=== PATIENT | male | born 1940 | race Native Hawaiian/Other Pacific Islander ===

== ENCOUNTER 2016-10-04 08:11 | Outpatient (CLI) | payer OTHER ==
[~2016-10-04 08:11] MED LIST: ASA LO-DOSE81 MG PO; CEPH500C20 PO; CIPRO500 MG PO; CLOP75TA2 PO; LOVASTATIN10 MG OR; METF500T PO; METO25TA4 OR; ONDA2INJ2 SL; ONDA4TAB3 PO; SM ASPIRIN325 M1 PO; TETA5INJ3 INJ; TRIAMCINOLON0.51 TOP
[2016-10-04 08:50] LABS: PLATELET COUNT 177 K/uL (142-355)
[2016-10-04 09:20] LABS: POTASSIUM 4.6 mmol/L (3.6-5.2); SODIUM 139 mmol/L (136-145)
== END 2016-10-04 09:15 | disposition home or self-care (01) ==
LOC: LABW 08:11
PROVIDERS: Internal Medicine
DX: E11.9 Type 2 diabetes mellitus without complications (principal)
CPT/HCPCS: 36415; 80053; 80061; 81000; 82043; 82570; 83036; 84439; 84443; 85027

== ENCOUNTER 2016-10-06 19:06 | Emergency (ER) | payer OTHER ==
[~2016-10-06] VITALS: Ht 180.3 cm; Wt 105.2 kg
[2016-10-06] MEDS ORDERED: METOPROLOL25 M1 OR (19:37)
[2016-10-06 20:05] LABS: PLATELET COUNT 181 K/uL (142-355)
[2016-10-06 20:12] LABS: POTASSIUM 4.4 mmol/L (3.6-5.2); SODIUM 137 mmol/L (136-145)
[2016-10-06 20:28] LABS: PARTIAL THROMBOPLASTIN TIME 25.1 SECONDS (24.5-33.6)
[2016-10-07 00:28] VITALS: BP 186/78; TEMP 98.1
== END 2016-10-07 00:29 | disposition home or self-care (01) ==
LOC: ED 19:06
DX: K29.60 Other gastritis without bleeding (principal); B96.81 Helicobacter pylori [H. pylori] as the cause of diseases classified elsewhere; K57.30 Diverticulosis of large intestine without perforation or abscess without bleeding
CPT/HCPCS: 36415; 80053; 82550; 84484; 85027; 85610; 85730; 86318; 93005; 99283; Q9963

== ENCOUNTER 2017-09-19 09:29 | Outpatient (CLI) | payer OTHER ==
[~2017-09-19 09:29] MED LIST changes: +METOPROLOL25 M1 OR
== END 2017-09-19 22:31 | disposition home or self-care (01) ==
LOC: RAD 09:29
DX: J40 Bronchitis, not specified as acute or chronic (principal)

== ENCOUNTER 2017-12-18 10:29 | Outpatient (CLI) | payer OTHER | END 2017-12-18 20:09 | disposition home or self-care (01) | LOC: RESP 10:29 | DX: R00.2 Palpitations (principal) | CPT/HCPCS: 93225 ==

== ENCOUNTER 2017-12-19 08:23 | Outpatient (CLI) | payer OTHER ==
[2017-12-19 09:41] LABS: PLATELET COUNT 194 K/uL (142-355)
[2017-12-19 10:00] LABS: POTASSIUM 4.2 mmol/L (3.6-5.2)
== END 2017-12-19 20:14 | disposition home or self-care (01) ==
LOC: LABW 08:23
PROVIDERS: Internal Medicine
DX: R00.2 Palpitations (principal); E11.9 Type 2 diabetes mellitus without complications; I25.10 Atherosclerotic heart disease of native coronary artery without angina pectoris; J42 Unspecified chronic bronchitis; R06.02 Shortness of breath
CPT/HCPCS: 36415; 80053; 80061; 81000; 82043; 82570; 83036; 83735; 83880; 84439; 84443; 85027; 85379

== ENCOUNTER 2018-05-07 01:20 | Emergency (ER) | payer OTHER ==
[~2018-05-07] VITALS: Ht 180.3 cm; Wt 106.1 kg
[2018-05-07 01:42] VITALS: TEMP 97.5
[2018-05-07 01:50] LABS: PLATELET COUNT 153 K/uL (142-355)
[2018-05-07 03:15] LABS: PARTIAL THROMBOPLASTIN TIME 25.4 SECONDS (24.5-33.6)
[2018-05-07 04:19] VITALS: BP 160/61
== END 2018-05-07 04:45 | disposition short-term general hospital (02) ==
LOC: ED 01:21
PROVIDERS: Emergency Medicine
DX: I21.4 Non-ST elevation (NSTEMI) myocardial infarction (principal)
CPT/HCPCS: 36415; 80053; 82550; 82553; 84484; 85027; 85610; 85730; 93005; 96365; 96375; 99285; J1644; J2270; J3490

== ENCOUNTER 2018-06-23 14:25 | Outpatient (CLI) | payer OTHER | END 2018-06-23 20:29 | disposition home or self-care (01) | LOC: RAD 14:25 | DX: K59.09 Other constipation (principal) ==

== ENCOUNTER 2018-06-24 07:32 | Outpatient (CLI) | payer OTHER ==
[2018-06-24 07:49] LABS: PLATELET COUNT 175 K/uL (142-355)
[2018-06-24 08:30] LABS: POTASSIUM 4.5 mmol/L (3.6-5.2)
== END 2018-06-24 20:08 | disposition home or self-care (01) ==
LOC: LABW 07:32
PROVIDERS: Internal Medicine
DX: K59.09 Other constipation (principal); I25.10 Atherosclerotic heart disease of native coronary artery without angina pectoris; E11.9 Type 2 diabetes mellitus without complications
CPT/HCPCS: 36415; 80053; 81000; 84439; 84443; 85027

== ENCOUNTER 2019-04-16 07:18 | Outpatient (CLI) | payer OTHER ==
[2019-04-16 07:59] LABS: PLATELET COUNT 184 K/uL (142-355)
[2019-04-16 08:20] LABS: POTASSIUM 4.4 mmol/L (3.6-5.2)
== END 2019-04-16 19:34 | disposition home or self-care (01) ==
LOC: LABW 07:18
PROVIDERS: Internal Medicine
DX: E11.9 Type 2 diabetes mellitus without complications (principal)
CPT/HCPCS: 36415; 80053; 80061; 81000; 82043; 82570; 83036; 84439; 84443; 85027

== ENCOUNTER 2019-12-14 07:35 | Outpatient (CLI) | payer OTHER ==
[2019-12-14 08:07] LABS: PLATELET COUNT 163 K/uL (142-355)
[2019-12-14 08:31] LABS: POTASSIUM 3.9 mmol/L (3.6-5.2)
== END 2019-12-14 19:07 | disposition home or self-care (01) ==
LOC: LABW 07:35
PROVIDERS: Internal Medicine
DX: N40.1 Benign prostatic hyperplasia with lower urinary tract symptoms (principal); E11.9 Type 2 diabetes mellitus without complications
CPT/HCPCS: 36415; 80053; 80061; 81000; 82043; 82570; 83036; 84153; 84439; 84443; 85027

== ENCOUNTER 2020-05-10 08:05 | Outpatient (CLI) | payer OTHER | END 2020-05-10 19:30 | disposition home or self-care (01) | LOC: INF 08:05 | PROVIDERS: ATTEND Internal Medicine | DX: Z23 Encounter for immunization (principal) | CPT/HCPCS: 96372 ==

== ENCOUNTER 2020-05-30 07:57 | Outpatient (CLI) | payer OTHER | END 2020-05-30 19:48 | disposition home or self-care (01) | LOC: INF 07:57 | PROVIDERS: ATTEND Internal Medicine | DX: Z23 Encounter for immunization (principal) | CPT/HCPCS: 96372 ==

== ENCOUNTER 2020-06-30 09:03 | Outpatient (CLI) | payer OTHER | END 2020-06-30 21:46 | disposition home or self-care (01) | LOC: LABW 09:03 | PROVIDERS: ATTEND Internal Medicine Gastroenterology | DX: K64.0 First degree hemorrhoids (principal) | CPT/HCPCS: 82272 ==

== ENCOUNTER 2020-07-04 08:04 | Outpatient (CLI) | payer OTHER ==
[~2020-07-04] VITALS: Ht 30.5 cm; Wt 0.5 kg
== END 2020-07-04 19:40 | disposition home or self-care (01) ==
LOC: NM 08:04
PROVIDERS: ATTEND Specialist
DX: I42.8 Other cardiomyopathies (principal)
CPT/HCPCS: A9500; J2785

== ENCOUNTER 2020-09-01 07:22 | Outpatient (CLI) | payer OTHER ==
[2020-09-01 08:11] LABS: PLATELET COUNT 190 K/uL (142-355)
[2020-09-01 08:55] LABS: POTASSIUM 4.5 mmol/L (3.6-5.2)
== END 2020-09-01 23:00 | disposition home or self-care (01) ==
LOC: LABW 07:22
PROVIDERS: ATTEND Specialist
DX: I25.10 Atherosclerotic heart disease of native coronary artery without angina pectoris (principal); Z01.810 Encounter for preprocedural cardiovascular examination; E11.9 Type 2 diabetes mellitus without complications; Z51.81 Encounter for therapeutic drug level monitoring
CPT/HCPCS: 36415; 80053; 85027

== ENCOUNTER 2020-09-08 07:29 | Outpatient (CLI) | payer OTHER ==
[2020-09-08 08:33] LABS: POTASSIUM 4.2 mmol/L (3.6-5.2)
== END 2020-09-08 21:49 | disposition home or self-care (01) ==
LOC: LABW 07:29
PROVIDERS: ATTEND Specialist
DX: E11.9 Type 2 diabetes mellitus without complications (principal); Z51.81 Encounter for therapeutic drug level monitoring
CPT/HCPCS: 36415; 80048

== ENCOUNTER 2020-10-25 19:37 | Emergency (ER) | payer OTHER ==
[~2020-10-25] VITALS: Ht 180.3 cm; Wt 105.2 kg
[2020-10-25 19:45] VITALS: BP 183/79; TEMP 98.8
== END 2020-10-25 21:28 | disposition home or self-care (01) ==
LOC: ED 19:37
DX: Z53.21 Procedure and treatment not carried out due to patient leaving prior to being seen by health care provider (principal)
CPT/HCPCS: 99281

== ENCOUNTER 2020-11-03 08:29 | Outpatient (CLI) | payer OTHER | END 2020-11-03 19:28 | disposition home or self-care (01) | LOC: LAB 08:29 | PROVIDERS: ATTEND Internal Medicine | DX: J40 Bronchitis, not specified as acute or chronic (principal); Z11.52 Encounter for screening for COVID-19 | CPT/HCPCS: 87635; G2023; U0003 ==

== ENCOUNTER 2020-12-15 07:45 | Outpatient (CLI) | payer OTHER ==
[2020-12-15 08:20] LABS: PLATELET COUNT 179 K/uL (142-355)
[2020-12-15 08:59] LABS: POTASSIUM 4.1 mmol/L (3.6-5.2)
== END 2020-12-15 19:52 | disposition home or self-care (01) ==
LOC: LABW 07:45
PROVIDERS: ATTEND Internal Medicine
DX: E11.9 Type 2 diabetes mellitus without complications (principal); R82.998 Other abnormal findings in urine
CPT/HCPCS: 36415; 80053; 80061; 81000; 83036; 84439; 84443; 85027; 87077; 87086; 87088; 87186

== ENCOUNTER 2021-03-30 07:25 | Outpatient (CLI) | payer OTHER ==
[2021-03-30 08:20] LABS: PLATELET COUNT 168 K/uL (142-355)
[2021-03-30 08:53] LABS: POTASSIUM 3.9 mmol/L (3.6-5.2)
== END 2021-03-30 23:03 | disposition home or self-care (01) ==
LOC: LABW 07:25
PROVIDERS: ATTEND Internal Medicine
DX: E11.9 Type 2 diabetes mellitus without complications (principal)
CPT/HCPCS: 36415; 80053; 80061; 81000; 83036; 84439; 84443; 85027

== ENCOUNTER 2021-04-23 08:34 | Outpatient (CLI) | payer OTHER | END 2021-04-23 18:50 | disposition home or self-care (01) | LOC: RAD 08:34 | PROVIDERS: ATTEND Internal Medicine | DX: J40 Bronchitis, not specified as acute or chronic (principal) ==

== ENCOUNTER 2021-06-18 07:33 | Outpatient (CLI) | payer OTHER ==
[2021-06-18 08:25] LABS: PLATELET COUNT 185 K/uL (142-355)
== END 2021-06-18 19:08 | disposition home or self-care (01) ==
LOC: LABW 07:33
PROVIDERS: ATTEND Internal Medicine
DX: I25.10 Atherosclerotic heart disease of native coronary artery without angina pectoris (principal); R06.09 Other forms of dyspnea
CPT/HCPCS: 36415; 80053; 83880; 84439; 84443; 85027; 85379

== ENCOUNTER 2022-01-03 13:17 | Outpatient (CLI) | payer OTHER ==
[2022-01-03 13:53] LABS: PLATELET COUNT 216 K/uL (142-355)
[2022-01-03 14:02] LABS: POTASSIUM 4.2 mmol/L (3.6-5.2)
== END 2022-01-03 22:00 | disposition home or self-care (01) ==
LOC: LAB 13:17
PROVIDERS: ATTEND Internal Medicine
DX: E11.9 Type 2 diabetes mellitus without complications (principal)
CPT/HCPCS: 80053; 80061; 83036; 84439; 84443; 85027

== ENCOUNTER 2022-02-08 08:01 | Outpatient (CLI) | payer OTHER | END 2022-02-08 19:00 | disposition home or self-care (01) | LOC: LABW 08:01 | PROVIDERS: ATTEND Specialist | DX: I10 Essential (primary) hypertension (principal); I48.91 Unspecified atrial fibrillation | CPT/HCPCS: 36415; 84443; 85379 ==

== ENCOUNTER 2022-02-11 13:23 | Emergency (ER) | payer OTHER ==
[~2022-02-11] VITALS: Ht 180.3 cm; Wt 105.2 kg
[2022-02-11 13:28] VITALS: TEMP 98
[2022-02-11 14:07] LABS: PLATELET COUNT 193 K/uL (142-355)
[2022-02-11 14:52] VITALS: BP 128/78
== END 2022-02-11 14:53 | disposition home or self-care (01) ==
LOC: ED 13:23
PROVIDERS: Emergency Medicine Emergency Medical Services
DX: J20.9 Acute bronchitis, unspecified (principal); Z20.822 Contact with and (suspected) exposure to COVID-19
CPT/HCPCS: 85027; 87502; 87635; 99283; U0003

== ENCOUNTER 2022-02-19 16:24 | Outpatient (CLI) | payer OTHER | END 2022-02-19 19:06 | disposition home or self-care (01) | LOC: CT 16:24 | PROVIDERS: ATTEND Specialist | DX: R79.1 Abnormal coagulation profile (principal) | CPT/HCPCS: 36415; 82565; 84520; Q9963 ==

== ENCOUNTER 2022-03-13 11:07 | Outpatient (CLI) | payer OTHER | END 2022-03-13 19:33 | disposition home or self-care (01) | LOC: US 11:07 | PROVIDERS: ATTEND Internal Medicine | DX: R79.89 Other specified abnormal findings of blood chemistry (principal) ==

== ENCOUNTER 2022-06-04 17:41 | Emergency (ER) | payer OTHER ==
[~2022-06-04] VITALS: Ht 180.3 cm; Wt 103.9 kg
[2022-06-04 17:46] VITALS: TEMP 97.7
[2022-06-04 18:06] LABS: PLATELET COUNT 141 K/uL (142-355)
[2022-06-04 18:20] LABS: POTASSIUM 3.7 mmol/L (3.6-5.2)
[2022-06-04 19:15] VITALS: BP 141/53
== END 2022-06-04 19:15 | disposition home or self-care (01) ==
LOC: ED 17:41
PROVIDERS: Emergency Medicine
DX: B34.9 Viral infection, unspecified (principal); E11.65 Type 2 diabetes mellitus with hyperglycemia; Z79.84 Long term (current) use of oral hypoglycemic drugs; Z20.822 Contact with and (suspected) exposure to COVID-19; R60.0 Localized edema
CPT/HCPCS: 36415; 80053; 82550; 83880; 84484; 85027; 87502; 87635; 93005; 99283; U0003

== ENCOUNTER 2022-09-27 07:34 | Outpatient (CLI) | payer OTHER ==
[2022-09-27 08:06] LABS: PLATELET COUNT 177 K/uL (142-355)
[2022-09-27 08:31] LABS: POTASSIUM 4.3 mmol/L (3.6-5.2)
== END 2022-09-27 19:38 | disposition home or self-care (01) ==
LOC: LABW 07:34
PROVIDERS: ATTEND Internal Medicine
DX: E11.9 Type 2 diabetes mellitus without complications (principal)
CPT/HCPCS: 36415; 80053; 80061; 81002; 82043; 83036; 84439; 84443; 85027